=== PATIENT | male | born 1940 | race Caucasian/White ===

== ENCOUNTER 2023-02-23 10:08 | Outpatient (REF) | payer MEDICARE, SELFPAY ==
--- NOTE | ~2023-02-23 | CT_ITS ---
EXAMINATION: CT SOFT TISSUE NECK WITH CONTRAST CLINICAL INFORMATION: Lesion base of tongue. COMPARISON: There are no prior studies available for comparison at time of dictation. TECHNIQUE: Following the intravenous administration of 60 mL of Omnipaque 350 intravenous contrast, helical imaging was performed in the axial plane with generation of coronal and sagittal reformatted images. This CT examination was performed using dose optimization techniques as appropriate, variously including the following: *Automated exposure control *Adjustment of mA and/or kV according to patient size (this includes techniques or standardized protocols for targeted exams where dose is matched to indication/reason for exam; i.e. extremities or head) *Use of iterative reconstruction technique DLP: 426 mGy-cm FINDINGS: There are multiple mildly prominent lymph nodes in the right superior mediastinum and right lower neck measuring up to 1 cm. There are a few small paratracheal lymph nodes. The right submandibular gland appears slightly larger compared to the left. There is soft tissue fullness at the base of tongue bilaterally, and there is fullness of the bilateral lingual tonsils. The parotid glands are homogeneous in attenuation. The laryngeal structures are normal. The parapharyngeal fat is preserved. There are extensive atheromatous calcifications at the carotid bifurcations and cavernous internal carotid arteries bilaterally. There are extensive atheromatous calcifications of the aortic arch and at the origins of the great vessels of the neck. No retropharyngeal fluid collection is seen. The thyroid gland is normal. There is a 3 mm nodule laterally in the left upper lobe (image 331/478, series 3). There is a 5 mm subpleural nodule posteriorly in the superior segment of the left lower lobe (image 444/478, series 3). A 4 mm nodule adjacent to this is noted in the left lower lobe at the same level. There is a 4 mm nodule in the right upper lobe (image 410/478, series 3). There is a trace right pleural effusion. There is minimal mucoperiosteal thickening in the anterior right ethmoid air cells. The mastoid air cells and the other visualized paranasal sinuses are well aerated. There have been bilateral lens extractions. The temporomandibular joints are normal. There is extensive caries in the right mandibular 2nd molar tooth. There are no acute osseous abnormalities. 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 There are multilevel degenerative changes at the costovertebral junctions. There is multilevel narrowing of intervertebral disc height. There are multiple calcifications in the nuchal soft tissues. Intracranially, there is diffuse volume loss. There are no masses or areas of abnormal enhancement. CT/CT soft tissue neck w IV con IMPRESSION: 1. There is soft tissue fullness at the base of tongue and lingual tonsils bilaterally, which can be clinically correlated. There are multiple mildly prominent lymph nodes in the right lower neck and right superior mediastinum and paratracheal region. 2. There is a trace right pleural effusion. There are multiple nodules in the left lung measuring up to 5 mm as described above. Per the 2017 revised Fleischner Society guidelines, in low-risk patients no routine follow up is necessarily required. In patients at high-risk for pulmonary neoplasm, recommend consideration of followup CT at 12 months to demonstrate nodule stability. 3. The [facility] staff will call to confirm receipt of this report with acknowledgement of the findings and any recommendations.
[2023-02-23] MEDS: iohexoL 350 MG/ML 75 ML INFUS..BTL 60 ML IV (10:54)
[2023-02-24 08:58] LABS: GFR POC > 60
== END 2023-02-23 10:09 | disposition home or self-care (01) ==
LOC: HO.CT 10:08
PROVIDERS: PCP Internal Medicine; Visit Provider Otolaryngology
DX: R13.10 Dysphagia, unspecified (principal)
CPT/HCPCS: 70491; 82565; Q9967

== ENCOUNTER 2023-04-23 09:49 | Outpatient (REF) | payer MEDICARE, SELFPAY ==
--- NOTE | ~2023-04-23 | FL_ITS ---
EXAMINATION: XR FLUOROSCOPY BARIUM SWALLOW WITH AIR CLINICAL INFORMATION: Episodic dysphasia with cough. COMPARISON: None. TECHNIQUE: Fluoroscopic air contrast barium swallow examination was performed utilizing standard techniques with thin and thick barium and effervescent granules. Numerous spot images were obtained. FINDINGS: Lateral cine images of the oropharynx and hypopharynx demonstrate normal swallow mechanism with normal epiglottic inversion and soft palate elevation. There was trace laryngeal penetration with thick barium, however this cleared on subsequent swallow and there was no gross laryngeal or subglottic aspiration. No nasopharyngeal reflux present. Mild pooling in the vallecula and piriform sinuses was present, which also cleared on subsequent swallow. Hypopharyngeal structures appear normal without evidence of mass or diverticulum. There was no significant cricopharyngeal achalasia. Dual and single contrast images of the esophagus demonstrate normal caliber, contour, and mucosal pattern. No evidence of stricture, mass, or ulcerations identified. The primary peristaltic wave of the esophagus was normally propulsive, however followed by nonpropulsive tertiary contractions consistent with presbyesophagus. No evidence of hiatus hernia identified. Mild gastroesophageal reflux was seen during the course of the examination to the level of the aortic arch. Dual contrast and single contrast images of the stomach demonstrated normal contour and mucosal pattern without evidence of mass, ulceration, or other abnormality. Contrast freely passed into the gastric antrum and duodenal bulb without delay. Single and air-contrast images of the duodenal bulb demonstrate no abnormality. The duodenal sweep has a normal appearance, course, and mucosal fold appearance. The imaged proximal jejunum has a normal fold pattern and caliber. Cholecystectomy clips are noted. The aortic arch is calcified. FLUOROSCOPY TIME: 3 minutes 16 seconds Number of Spot Images: 4 fluoroscopic image hold cine runs; 9 fluoroscopic spot images obtained. DOSE AREA PRODUCT: 3483 uGy-m2 (microgray-meter squared) FL/FL barium swallow IMPRESSION: 1. Minimal tracheal penetration with thick barium, however no gross glottic or subglottic aspiration was present. 2. 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 3. Mild gastroesophageal reflux noted. 4. Remainder of the examination including the esophagus, stomach, duodenal bulb and sweep, and proximal jejunum are normal in appearance.
== END 2023-04-23 09:50 | disposition home or self-care (01) ==
LOC: HO.XRAY 09:49
PROVIDERS: PCP Internal Medicine; Visit Provider Otolaryngology
DX: R13.10 Dysphagia, unspecified (principal)
CPT/HCPCS: 74220

== ENCOUNTER → 2023-04-23 09:51 | Outpatient (BNV) | payer MEDICARE, SELFPAY | PROVIDERS: PCP Internal Medicine; Visit Provider Radiology Diagnostic Radiology | DX: R13.10 Dysphagia, unspecified (principal) | CPT/HCPCS: 74221 ==